=== PATIENT | female | born 1985 | race Two or more races ===

== ENCOUNTER 2023-07-15 18:53 | Emergency (ER) | payer BC ==
[2023-07-15 18:59] VITALS: BP 120/64; PULSE 100; RESP 20; TEMP 97.5; BMI 34.0
[2023-07-15] MEDS ORDERED: LACTATED RINGERS SOLUTION 1000 ML INFUS.BAG IV ONE (19:45)
[2023-07-15] MEDS ORDERED: ACETAMINOPHEN 1000 MG/100 ML BAG IVPB ONE (19:45)
[2023-07-15] MEDS ORDERED: ACETAMINOPHEN INJECTION 100 ML IVPB ONE (20:12)
[2023-07-15 22:00] LABS: BASO % 0.4 % (0-2.0); EOS % 0.8 % (0-4.5); HEMATOCRIT 31.6 % (32.4-45.2); HEMOGLOBIN 10.9 GM/dL (10.7-15.3); LYMPH % 18.2 % (8-40); MCHC 34.5 g/dl (32.0-36.0); MEAN CELL VOLUME 78.4 fl (80-96); MEAN PLT VOLUME 7.1 fl (7.5-11.1); MONO % 5.1 % (3.8-10.2); NEUT % 75.5 % (42.8-82.8); PLATELET COUNT 327 10^3/uL (134-434); RBC 4.03 M/mm3 (3.60-5.2); RDW 13.4 % (11.6-15.6)
[2023-07-15 22:08] LABS: INR 1.03 (0.83-1.09)
[2023-07-15 22:11] LABS: ACTIVATED PTT 24.9 SECONDS (25.2-36.5)
[2023-07-15 22:33] LABS: CALCIUM 8.2 mg/dL (8.5-10.1)
[2023-07-15 22:34] LABS: BLOOD UREA NITROGEN 14.6 mg/dL (7-18)
[2023-07-15 22:37] LABS: CREATININE 0.6 mg/dL (0.55-1.3)
[2023-07-15 22:38] LABS: BILIRUBIN,TOTAL 0.1 mg/dL (0.2-1)
[2023-07-15 22:39] LABS: TOT PROT 6.7 g/dl (6.4-8.2)
== END 2023-07-15 23:22 | disposition home or self-care (01) ==
LOC: JER 18:53
DX: O03.9 Complete or unspecified spontaneous abortion without complication (principal); R11.0 Nausea
CPT/HCPCS: 36415; 76817-TC; 80053; 84702; 85025; 85610; 85730; 86850; 86900; 86901; 93005; 93010; 99285-25